=== PATIENT | male | born 2000 | race Caucasian/White ===

== ENCOUNTER 2025-04-27 23:00 | Inpatient (IN) | payer MEDICAID ==
[~2025-04-27] VITALS: Ht 170.2 cm; Wt 75.0 kg
[2025-04-27 23:13] VITALS: O2SAT 99
[2025-04-27 23:54] LABS: BASOPHILS % 0.3 % (0.0-2.0); EOSINOPHILS % 1.1 % (0.0-5.0); HEMOGLOBIN. 14.8 g/dL (14.0-18.0); LYMPHOCYTES % 19.8 % (20.0-50.0); MEAN CORPUSCULAR HEMOGLOBIN 30.7 pg (28.0-32.0); MEAN CORPUSCULAR HGB CONC 35.1 g/dL (31.0-37.0); MEAN CORPUSCULAR VOLUME 87.4 fL (80.0-94.0); MEAN PLATELET VOLUME 8.3 fl (7.4-10.4); MONOCYTES % 11.4 % (2.0-8.0); NEUTROPHILS % 67.4 % (40.0-76.0); PLATELET 231 x1000/uL (130-400); RED BLOOD CELL COUNT 4.81 mill/uL (4.7-6.1); RED CELL DISTRIBUTION WIDTH 12.6 % (11.6-14.6); WHITE BLOOD COUNT 8.4 x1000/uL (4.5-11.0)
[2025-04-28 00:03] LABS: CHLORIDE 101 mEq/L (98-107); POTASSIUM 3.2 mEq/L (3.5-5.1); SODIUM 139 mEq/L (136-145)
[2025-04-28 00:04] LABS: CARBON DIOXIDE 29 mEq/L (21-32)
[2025-04-28 00:05] LABS: CALCIUM 9.1 mg/dL (8.7-10.4)
[2025-04-28 00:09] LABS: GLUCOSE 91 mg/dL (70-105); UREA NITROGEN BLOOD 22 mg/dL (9-23)
[2025-04-28 00:10] LABS: ETHANOL BLOOD < 10 mg/dL (<10)
[2025-04-28 00:11] LABS: ACETAMINOPHEN 2 ug/mL (10-30)
[2025-04-28] MEDS: FOLIC ACID 1 MG, THIAMINE HCL 100 MG, MVI, ADULT NO.1 10 ML in DEXTROSE 5% WATER 1,000 ML IV ONE (03:41)
[2025-04-28 04:37] VITALS: TEMP 36.6; O2SAT 100
[2025-04-28 04:46] VITALS: BP 94/56; PULSE 60; RESP 16; TEMP 98.2
[2025-04-28] MEDS ORDERED: PHENOBARBITAL 60MG TABLET PO PRN (06:30)
[2025-04-28] MEDS ORDERED: LORAZEPAM 1MG TABLET PO PRN ×3 (06:30)
[2025-04-28] MEDS ORDERED: PHENOBARBITAL 30 MG TABLET PO PRN ×2 (06:30)
[2025-04-28] MEDS ORDERED: CHLORDIAZEPOXIDE 25MG CAPSULE PO PRN ×3 (06:30)
[2025-04-28] MEDS: MULTIVITAMINS,THER W-MINERALS TABLET PO SCH (10:12)
[2025-04-28] MEDS: FOLIC ACID 1MG TABLET PO SCH (10:12)
[2025-04-28] MEDS: THIAMINE HCL 100 MG/1 ML 2ML VIAL IM SCH (10:12)
[2025-04-28] MEDS ORDERED: ACETAMINOPHEN 325MG TABLET PO PRN ×2 (10:30)
[2025-04-28] MEDS ORDERED: LORAZEPAM 2MG/ML UD SYRINGE IV PRN (10:30)
[2025-04-28] MEDS ORDERED: DEXT 5%/0.45% NACL 1000ML 1,000 ML IV SCH (10:30)
[2025-04-28] MEDS ORDERED: DOCUSATE SODIUM 100MG CAPSULE PO PRN (10:30)
[2025-04-28] MEDS ORDERED: ONDANSETRON HCL 4MG/2ML INJ IV PRN (10:30)
[2025-04-28] MEDS ORDERED: CLONIDINE 0.1MG TABLET PO PRN (10:30)
[2025-04-28] MEDS ORDERED: IPRATROPIUM/ALBUTEROL 0.5-3(2.5)MG/3ML NEB HHN PRN (10:30)
[2025-04-28] MEDS ORDERED: FOLIC ACID 1MG TABLET PO SCH (11:00)
[2025-04-28] MEDS ORDERED: PANTOPRAZOLE SODIUM 40 MG/VIAL IV SCH (11:00)
[2025-04-28] MEDS ORDERED: MIDODRINE HCL 5MG TABLET PO SCH (11:00)
[2025-04-28] MEDS ORDERED: MULTIVITAMINS,THER W-MINERALS TABLET PO SCH (11:15)
[2025-04-29] MEDS ORDERED: THIAMINE HCL 100MG TABLET PO SCH (09:00)
[2025-04-29] MEDS ORDERED: MULTIVITAMINS,THER W-MINERALS TABLET PO SCH (09:00)
[2025-04-30] MEDS ORDERED: THIAMINE HCL 100MG TABLET PO SCH (09:00)
== END 2025-04-28 12:12 | disposition left against medical advice (07) | DRG 770 ==
LOC: EDBD 23:00 → ER 23:00 → 6WST 04-28 01:19 → EDBEDREQTM 04-28 01:28 → EDBEDREQ 04-28 01:28 → ENRESERV 04-28 03:58
PROVIDERS: ADMIT Internal Medicine; ATTEND Internal Medicine
DX: F10.129 Alcohol abuse with intoxication, unspecified (principal); Z53.29 Procedure and treatment not carried out because of patient's decision for other reasons; Y90.0 Blood alcohol level of less than 20 mg/100 ml; Z79.899 Other long term (current) drug therapy
CPT/HCPCS: 36415; 80048; 80307; 80320; 80329; 83735; 85025; 97165; 99285; J3411; J3490; J7070; G0480